=== PATIENT | male | born 2005 | race Caucasian/White ===

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

== ENCOUNTER 2025-07-28 16:16 | Outpatient (CLI) | payer BC, SELFPAY | END 2025-07-28 16:17 | disposition home or self-care (01) | LOC: NFLDUCREF 16:17 | PROVIDERS: PCP Pediatrics; Visit Provider Physician Assistant | DX: L02.91 Cutaneous abscess, unspecified (principal) | CPT/HCPCS: 87070; 87186 ==